=== PATIENT | female | born 1975 | race Caucasian/White ===

== ENCOUNTER 2018-05-09 15:10 | Inpatient (IN) | payer BC ==
[~2018-05-09] VITALS: Ht 165.1 cm; Wt 77.1 kg
[2018-05-09 15:22] VITALS: BP 147/101
[2018-05-09] MEDS ORDERED: BUSPIRONE HCL10 MG PO (15:26)
[2018-05-09 15:46] LABS: ABSOLUTE EOSINOPHILS 0.1 thou/uL (0.0-0.7); ABSOLUTE LYMPHOCYTES 1.9 thou/uL (0.8-5.3); ABSOLUTE MONOCYTES 0.4 thou/uL (0.0-1.2); ABSOLUTE NEUTROPHILS 3.5 thou/uL (1.6-8.1); BASOPHILS 0.5 %; EOSINOPHILS 1.7 %; HEMATOCRIT 42.4 % (37.0-47.0); HEMOGLOBIN 14.1 gm/dL (12.0-15.0); LYMPHOCYTES 31.3 %; MCHC 33.1 g/dL (28.0-37.0); MCV 93.6 fL (80.0-100.0); MONOCYTES 7.3 %; MPV 7.2 fl. (7.2-11.1); NUCLEATED RBCS 0 /100WBC; PLATELET COUNT* 323 thou/uL (150-400); POLYS 59.2 %; RBC 4.53 mil/uL (4.20-5.00); RDW-CV 13.7 % (10.5-14.5)
[2018-05-09 15:54] LABS: ANION GAP 9 mmol/L (7-16); BUN 9 mg/dL (7-18); CALCIUM 8.6 mg/dL (8.5-10.1); CHLORIDE 103 mmol/L (98-107); CO2 29 mmol/L (21-32); CREATININE 0.7 mg/dL (0.6-1.3); GLUCOSE 104 mg/dL (70-99); POTASSIUM 4.3 mmol/L (3.5-5.1); SODIUM 141 mmol/L (136-145)
[2018-05-09 16:01] LABS: ALBUMIN 3.8 g/dL (3.4-5.0); ALKALINE PHOSPHATASE 64 U/L (46-116); SGOT 21 U/L (15-37); SGPT 22 U/L (30-65); TOTAL BILIRUBIN 0.2 mg/dL (<0.1-1.0); TOTAL PROTEIN 7.2 g/dL (6.4-8.2); TROPONIN-I LEVEL <0.06 ng/mL (<0.06)
[2018-05-09 16:18] LABS: URINE BILIRUBIN NEGATIVE (Negative); URINE BLOOD NEGATIVE (Negative); URINE CLARITY CLEAR; URINE COLOR YELLOW; URINE GLUCOSE-RANDOM NEGATIVE (Negative); URINE KETONES NEGATIVE (Negative); URINE LEUKOCYTES-REFLEX NEGATIVE (Negative); URINE NITRITE-REFLEX NEGATIVE (Negative); URINE PROTEIN NEGATIVE (Negative); URINE SPECIFIC GRAVITY 1.025 (1.005-1.030); URINE UROBILINOGEN 0.2 E.U./dl (0.2-1.0)
[2018-05-09 20:20] VITALS: BP 133/90
[2018-05-09 21:34] VITALS: BP 135/86
[2018-05-10] VITALS: BP 115/77; BP 125/79
[2018-05-10 04:30] VITALS: BP 115/77; BP 121/60
[2018-05-10 04:42] LABS: ALBUMIN 3.4 g/dL (3.4-5.0); ALKALINE PHOSPHATASE 50 U/L (46-116); ANION GAP 9 mmol/L (7-16); BUN 13 mg/dL (7-18); CALCIUM 8.9 mg/dL (8.5-10.1); CHLORIDE 102 mmol/L (98-107); CHOLESTEROL 186 mg/dL (<200); CO2 28 mmol/L (21-32); CREATININE 0.8 mg/dL (0.6-1.3); GLUCOSE 94 mg/dL (70-99); HDL CHOLESTEROL 56 mg/dL (>40); LDL CHOLESTEROL 103 mg/dL (<100); POTASSIUM 3.8 mmol/L (3.5-5.1); SGOT 21 U/L (15-37); SGPT 20 U/L (30-65); SODIUM 139 mmol/L (136-145); TC:HDL 3.3 Ratio (Not establshd); TOTAL BILIRUBIN 0.4 mg/dL (<0.1-1.0); TOTAL PROTEIN 6.3 g/dL (6.4-8.2); TRIGLYCERIDE 139 mg/dL (<150); VLDL 28 mg/dL (<40)
[2018-05-10 04:45] LABS: SERUM ASSESSMENT Clear
[2018-05-10 10:44] VITALS: BP 129/81
--- NOTE | 2018-05-10 13:02 | EKG ---
[place] [address] ELECTROCARDIOGRAM REPORT Name: ZOYA PERDOMO Room: [address] ADM IN [facility].#: [id number] Admission: 05/09/18 Attend Phys: Sosa Elizabeth Discharge: Date of : 79 Report #: [id number] THIS REPORT FOR: //name// [facility] ED Test Date: 2018-05-09 Test Time: 17:08:50 Pat Name: ZOYA PERDOMO Department: Room: 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 : 1975 Requested By: Sandy Carvalho Order Number: [id number] MD: Francisco Mckeon Measurements Intervals [place] Rate: 70 P: 15 HI: 150 QRS: -21 QRSD: 105 T: 28 QT: 420 QTc: 454 Interpretive Statements Sinus rhythm Borderline left axis deviation RSR' in V1 or V2, probably normal variant No previous ECG available for comparison Electronically Signed On 05-10-2018 13:02:21 CDT by Francisco Mckeon [email or web address] <ELECTRONICALLY SIGNED> By: Francisco Mckeon MD, [facility] 05/10/18 1302 1708 1708 Francisco Mckeon MD, [facility] /EPI
[2018-05-10 15:45] VITALS: BP 129/81
[2018-05-10 16:00] VITALS: BP 142/76
--- NOTE | 2018-05-10 16:49 | 2DMMODE ---
[place] [address] 2 D/M-MODE ECHOCARDIOGRAM Name: ZOYA PERDOMO Room: [address] IN [facility]#: [id number] Admission: 05/09/18 Attend Phys: Mickey Peterson Discharge: Date of : 79 Date of Service: 05/10/18 1649 Report #: [id number] THIS REPORT FOR: //name// APPROVED REPORT Study performed: 05/10/2018 09:34:15 EXAM: Comprehensive 2D, Doppler, and color-flow Echocardiogram Patient Location: In-Patient Room #: [facility] Status: routine BSA: 1.85 HR: 62 bpm BP: 121/60 mmHg Rhythm: NSR Other Information Study Quality: Fair Indications CVA/TIA Echo Enhancing Agent Indication: Rule out Shunt Agent(s) / Amount(s) Used: Agitated Saline 10 cc 2D Dimensions IVSd: 11.25 (7-11mm) LVOT Diam: 22.57 (18-24mm) LVDd: 46.63 mm PWd: 9.52 (7-11mm) Ascending Ao: 33.57 (22-36mm) LVDs: 28.18 (25-40mm) Aortic Root: 31.72 mm Volumes Left Atrial Volume (Systole) LA ESV Index: 25.20 mL/m2 Aortic Valve AoV Peak Donovan.: 1.08 m/s AO Peak Gr.: 4.63 mmHg LVOT Max P.30 mmHg AO Mean Gr.: 2.48 mmHg LVOT Mean P.95 mmHg LVOT Max V: 1.04 m/s AO V2 VTI: 19.95 cm LVOT Mean V: 0.63 m/s DEMARCUS (VTI): 4.63 cm2 LVOT V1 VTI: 23.06 [place] [address] 2 D/M-MODE ECHOCARDIOGRAM Name: ZOYA PERDOMO Room: [address] IN [facility].#: [id number] Admission: 05/09/18 Attend Phys: Mickey Peterson Discharge: Date of : 79 Date of Service: 05/10/18 1649 Report #: [id number] Mitral Valve E/A Ratio: 1.42 MV Decel. Time: 263.14 ms MV E Max Donovan.: 0.88 m/s MV PHT: 76.31 ms MVA (PHT): 2.88 cm2 TDI E/Lateral E': 5.50 E/Medial E': 6.77 Medial E' Donovan.: 0.13 m/s Lateral E' Donovan.: 0.16 m/s Pulmonary Valve PV Peak Donovan.: 0.78 m/s PV Peak Gr.: 2.45 mmHg Left Ventricle The left ventricle is normal size. There is normal LV segmental wall motion. There is normal left ventricular wall thickness. Left ventricular systolic function is normal. The left ventricular ejection fraction is within the normal range. LVEF is 60-65%. The left ventricular diastolic function is normal. Right Ventricle The right ventricle is normal size. The right ventricular systolic function is normal. Atria The left atrium size is normal. Interatrial septum is intact without evidence of ASD or PFO. The right atrium size is normal. Aortic Valve The aortic valve is normal in structure. No aortic regurgitation is present. There is no aortic valvular stenosis. Mitral Valve The mitral valve is normal in structure. Trace mitral regurgitation. No evidence of mitral valve stenosis. Tricuspid Valve The tricuspid valve is normal in structure. Unable to assess PA pressure. Trace tricuspid regurgitation. Pulmonic Valve Pulmonic valve is not well visualized. [place] [address] 2 D/M-MODE ECHOCARDIOGRAM Name: ZOYA PERDOMO Room: [address] IN [facility]#: [id number] Admission: 05/09/18 Attend Phys: Mickey Peterson Discharge: Date of : 79 Date of Service: 05/10/18 1649 Report #: [id number] Great Vessels The aortic root is normal in size. IVC is normal in size and collapses with >50% inspiration Pericardium There is no pericardial effusion. <Conclusion> LVEF is 60-65%. Interatrial septum is intact without evidence of ASD or PFO. <ELECTRONICALLY SIGNED> By: Francisco Mckeon MD, FACC 05/10/181648 48 48 Francisco Mckeon MD, FACC /INF
[2018-05-11 04:06] LABS: GLYCOHEMOGLOBIN (HGB A1C) 4.7 % (4.8-5.6)
--- NOTE | 2018-05-14 09:32 | CON ---
[address] [address] CONSULTATION Name: ZOYA PERDOMO Room: [address] IN .R.#: [id number] Admission: 05/09/18 Attend Phys: Sosa Elizabeth Discharge: 05/10/18 Date of : 79 Report #: [id number] THIS REPORT FOR: //name// CC: [facility] physician/PCP Mickey Peterson DATE OF SERVICE: 05/10/2018 HISTORY OF PRESENT ILLNESS: This is a 43-year-old female patient who was discussed with the Emergency Room physician when she was admitted. The patient gives a history that for about 3 days, she is having pain in the left arm. To me, she tells me the pain is mostly in the left arm. She did have some blurry of the vision at one time, but that was nonspecific. She did a CT scan of the head, which demonstrate a possible brain stroke, though she went on CT angiogram of the head and neck that did not show any definite abnormality. Because of that, an MRI of the brain was ordered and that was also unremarkable. Her CT angiogram was normal. Then, she had an MRI of the brain today, which was also normal. REVIEW OF SYSTEMS: A 14-point review of systems indicates she recently moved and may be under stress. Rest of the 14-point review of system is mostly noncontributory. PAST MEDICAL HISTORY: Negative for anything to suggest a mass. FAMILY HISTORY: Negative for early age stroke. SOCIAL HISTORY: She drinks alcohol socially. PHYSICAL EXAMINATION: Indicate she is alert, responsive. She is able to follow simple command. Her concentration, fund of knowledge and memory is at her baseline. Cranial nerve examination 2-12 looks unremarkable. She has an unremarkable strength, sensation, reflexes and tone in all 4 extremities. She is reasonably well-developed individual. She does not have any dysmorphic features of eyes, ears and face. Cardiac and respiratory examination looks unremarkable. Blood pressure is 129/81, respirations 16, pulse is 60, temperature is 98.2. LABORATORY DATA: White count is normal. TSH is normal. IMAGING STUDIES: As described above. IMPRESSION: So far, this patient's workup is unremarkable. Abnormal CT was most likely secondary to artifact. I will suggest doing an MRI of the C-spine to make sure there is no etiology there. If that is unremarkable, I do not think any further [place] [address] CONSULTATION Name: ZOYA PERDOMO Room: [address]#: [id number] Admission: 05/09/18 Attend Phys: Sosa Elizabeth Discharge: 05/10/18 Date of : 79 Report #: [id number] All of it was discussed with the patient in detail and she wants to follow this plan. <ELECTRONICALLY SIGNED> By: Michele Gilbert MD 05/14/18 0932 1440 [id number] gerard Garcia
== END 2018-05-10 18:00 | disposition home or self-care (01) | DRG 880 ==
LOC: M.ERS 15:10 → M.ORTHSURG 18:56 → M.TBA-ER 18:56 → M.ORTHSURG 20:35
PROVIDERS: Nurse Practitioner Family; ADMIT Internal Medicine
DX: F41.1 Generalized anxiety disorder (principal); F32.9 Major depressive disorder, single episode, unspecified; R51 Headache; I10 Essential (primary) hypertension; F41.0 Panic disorder [episodic paroxysmal anxiety]; Z87.891 Personal history of nicotine dependence; Z79.899 Other long term (current) drug therapy; Z82.49 Family history of ischemic heart disease and other diseases of the circulatory system

== ENCOUNTER 2018-11-19 21:06 | Emergency (ER) | payer BC ==
[~2018-11-19] VITALS: Ht 165.1 cm; Wt 70.8 kg
[~2018-11-19 21:06] MED LIST: BUSPIRONE HCL10 MG PO
[2018-11-19] MEDS ORDERED: MACROBID 100 M100 M2 PO (21:16)
[2018-11-19] MEDS ORDERED: ATIVAN1 MG PO (22:36)
[2018-11-19 22:48] VITALS: BP 143/100
--- NOTE | 2018-11-20 10:49 | EKG ---
[place] [address] ELECTROCARDIOGRAM REPORT Name: ZOYA PERDOMO [place] Room: 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 : 1975 Requested By: Stephanie Jimenez Order Number: [id number] Jarred MD: Francisco Mckeon Measurements Intervals [place] Rate: 121 P: 45 [place]: 149 QRS: -2 QRSD: 97 T: 73 QT: 331 QTc: 470 Interpretive Statements Sinus tachycardia Probable left atrial enlargement RSR' in V1 or V2, probably normal variant Compared to ECG 05/09/2018 17:08:50 Sinus rhythm no longer present Electronically Signed On 11-20-2018 10:49:38 CDT by Francisco Mckeon [email or web address] <ELECTRONICALLY SIGNED> By: Francisco Mckeon MD, FACHenry 11/20/18 1049 20 20 Francisco Mckeon MD, [facility] /EPI
== END 2018-11-19 22:50 | disposition home or self-care (01) ==
LOC: M.ERS 21:06
DX: F41.0 Panic disorder [episodic paroxysmal anxiety] (principal); F32.9 Major depressive disorder, single episode, unspecified; I10 Essential (primary) hypertension; Z90.10 Acquired absence of unspecified breast and nipple

== ENCOUNTER 2019-04-02 12:52 | Emergency (ER) | payer BC ==
[~2019-04-02] VITALS: Ht 165.1 cm; Wt 77.1 kg
[~2019-04-02 12:52] MED LIST changes: +ATIVAN1 MG PO; +MACROBID 100 M100 M2 PO
[2019-04-02 13:18] LABS: ABSOLUTE BASOPHILS 0.1 thou/uL (0.0-0.2); ABSOLUTE EOSINOPHILS 0.1 thou/uL (0.0-0.7); ABSOLUTE LYMPHOCYTES 3.1 thou/uL (0.8-5.3); ABSOLUTE MONOCYTES 0.7 thou/uL (0.0-1.2); ABSOLUTE NEUTROPHILS 3.8 thou/uL (1.6-8.1); BASOPHILS 0.8 %; EOSINOPHILS 1.5 %; HEMATOCRIT 44.4 % (37.0-47.0); HEMOGLOBIN 14.9 gm/dL (12.0-15.0); LYMPHOCYTES 40.1 %; MCHC 33.7 g/dL (28.0-37.0); MONOCYTES 8.7 %; NUCLEATED RBCS 0 /100WBC; PLATELET COUNT* 372 thou/uL (150-400); POLYS 48.9 %; RBC 4.82 mil/uL (4.20-5.00); RDW-CV 13.2 % (10.5-14.5); WBC 7.7 thou/uL (4.0-11.0)
[2019-04-02 13:29] LABS: APTT 24.2 Seconds (25.0-31.3); PROTIME 10.4 Seconds (9.20-11.50)
[2019-04-02 13:44] LABS: ANION GAP 9 mmol/L (7-16); BUN 24 mg/dL (7-18); CALCIUM 8.8 mg/dL (8.5-10.1); CHLORIDE 102 mmol/L (98-107); CO2 26 mmol/L (21-32); CREATININE 1.1 mg/dL (0.6-1.3); GLUCOSE 151 mg/dL (70-99); POTASSIUM 3.6 mmol/L (3.5-5.1); SODIUM 137 mmol/L (136-145)
[2019-04-02 13:54] LABS: ALBUMIN 4.4 g/dL (3.4-5.0); ALKALINE PHOSPHATASE 70 U/L (46-116); CK-MB MASS < 0.5 ng/mL (<0.5-3.6); LIPASE 162 U/L (73-393); NT-PRO BRAIN NAT PEPTIDE 31 pg/mL (<300); SGOT 20 U/L (15-37); SGPT 25 U/L (30-65); TOTAL BILIRUBIN 0.5 mg/dL (<0.1-1.0); TOTAL PROTEIN 7.8 g/dL (6.4-8.2); TROPONIN-I LEVEL <0.06 ng/mL (<0.06)
[2019-04-02 14:05] LABS: URINE BILIRUBIN NEGATIVE (Negative); URINE BLOOD NEGATIVE (Negative); URINE CLARITY CLEAR; URINE COLOR YELLOW; URINE GLUCOSE-RANDOM NEGATIVE (Negative); URINE KETONES NEGATIVE (Negative); URINE LEUKOCYTES-REFLEX NEGATIVE (Negative); URINE NITRITE-REFLEX NEGATIVE (Negative); URINE PROTEIN NEGATIVE (Negative); URINE SPECIFIC GRAVITY >= 1.030 (1.005-1.030); URINE UROBILINOGEN 0.2 E.U./dl (0.2-1.0)
[2019-04-02 14:08] VITALS: BP 165/106
[2019-04-02 14:13] LABS: AMP/METHAMP Negative (Negative); BARBITURATES Negative (Negative); BENZODIAZEPINES Negative (Negative); COCAINE Negative (Negative); METHADONE Negative (Negative); OPIATES Negative (Negative); PCP Negative (Negative); THC POSITIVE (Negative)
--- NOTE | 2019-04-04 10:05 | EKG ---
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 : 1975 Requested By: Mathieu Malik Order Number: [id number] MD: Samson Gallegos Measurements Intervals [place] Rate: 145 P: 40 GA: 139 QRS: -38 QRSD: 100 T: 122 QT: 286 QTc: 444 Interpretive Statements Sinus tachycardia Left axis deviation Low voltage, precordial leads RSR' in V1 or V2, probably normal variant Probable anteroseptal infarct, old Borderline repolarization abnormality Baseline wander in lead(s) I,II,III,aVL,aVF Compared to ECG 11/19/2018 21:21:29 Left-axis deviation now present Low QRS voltage now present Myocardial infarct finding now present ST (T wave) deviation now present Electronically Signed On 04-04-2019 10:05:06 CDT by Samson Gallegos [email or web address] <ELECTRONICALLY SIGNED> By: Samson Gallegos MD, [facility] 04/04/19 1005 1257 1257 Samson Gallegos MD, [facility] /EPI
== END 2019-04-02 14:05 | disposition home or self-care (01) ==
LOC: M.ERS 12:52
PROVIDERS: Family Medicine
DX: F41.0 Panic disorder [episodic paroxysmal anxiety] (principal); E86.0 Dehydration; I10 Essential (primary) hypertension; F32.9 Major depressive disorder, single episode, unspecified

== ENCOUNTER 2020-05-27 20:28 | Emergency (ER) | payer BC ==
[~2020-05-27] VITALS: Ht 165.1 cm; Wt 77.1 kg
[2020-05-27] MEDS ORDERED: SERTRALINE HCL100 MG PO (20:37)
[2020-05-27 21:30] VITALS: BP 146/92
== END 2020-05-27 21:37 | disposition home or self-care (01) ==
LOC: M.ERS 20:28
DX: F41.0 Panic disorder [episodic paroxysmal anxiety] (principal); I10 Essential (primary) hypertension

== ENCOUNTER 2020-09-30 17:38 | Emergency (ER) | payer BC ==
[~2020-09-30] VITALS: Ht 165.1 cm; Wt 79.4 kg
[~2020-09-30 17:38] MED LIST changes: +SERTRALINE HCL100 MG PO
[2020-09-30] MEDS ORDERED: XANAX 0.5 MG0.5 M1 PO ×2 (17:46→19:11)
[2020-09-30 18:37] LABS: ABSOLUTE BASOPHILS 0.1 thou/uL (0.0-0.2); ABSOLUTE EOSINOPHILS 0.1 thou/uL (0.0-0.7); ABSOLUTE LYMPHOCYTES 2.6 thou/uL (0.8-5.3); ABSOLUTE MONOCYTES 0.5 thou/uL (0.0-1.2); ABSOLUTE NEUTROPHILS 3.3 thou/uL (1.6-8.1); BASOPHILS 0.9 %; EOSINOPHILS 1.8 %; HEMATOCRIT 44.8 % (37.0-47.0); HEMOGLOBIN 15.2 gm/dL (12.0-15.0); LYMPHOCYTES 39.7 %; MCH 31.3 pg (26.0-34.0); MCHC 33.8 g/dL (28.0-37.0); MCV 92.6 fL (80.0-100.0); MPV 6.7 fl. (7.2-11.1); NUCLEATED RBCS 0 /100WBC; PLATELET COUNT* 354 thou/uL (150-400); POLYS 50.6 %; RBC 4.84 mil/uL (4.20-5.00); RDW-CV 12.9 % (10.5-14.5); WBC 6.6 thou/uL (4.0-11.0)
[2020-09-30 18:42] LABS: CALCIUM 8.9 mg/dL (8.5-10.1); CREATININE 0.7 mg/dL (0.6-1.3); POTASSIUM 3.5 mmol/L (3.5-5.1)
[2020-09-30 18:47] LABS: ALBUMIN 4.4 g/dL (3.4-5.0); TOTAL BILIRUBIN 0.3 mg/dL (<0.1-1.0); TOTAL PROTEIN 8.1 g/dL (6.4-8.2)
[2020-09-30 19:30] VITALS: BP 163/96
--- NOTE | 2020-10-01 17:09 | EKG ---
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: TP : 1975 Requested By: Lien Pete Order Number: [id number] MD: Samson Gallegos Measurements Intervals [place] Rate: 114 P: 29 MS: 189 QRS: -23 QRSD: 85 T: 54 QT: 259 QTc: 357 Interpretive Statements Sinus tachycardia Left atrial enlargement Borderline left axis deviation Borderline T wave abnormalities Minimal ST elevation, anterolateral leads Compared to ECG 04/02/2019 12:57:49 Atrial abnormality now present T-wave abnormality now present ST (T wave) deviation now present Myocardial infarct finding no longer present Electronically Signed On 10-01-2020 17:09:09 UPPER CUTTER by Samson Gallegos [email or web address] <ELECTRONICALLY SIGNED> By: Samson Gallegos MD, [facility] 10/01/20 1709 1743 174 Samson Gallegos MD, [facility] /EPI
== END 2020-09-30 19:31 | disposition home or self-care (01) ==
LOC: M.ERS 17:38
PROVIDERS: Physician Assistant
DX: F41.0 Panic disorder [episodic paroxysmal anxiety] (principal); R00.2 Palpitations; R00.0 Tachycardia, unspecified; I10 Essential (primary) hypertension